=== PATIENT | female | born 1955 | race Caucasian/White ===

== ENCOUNTER → 2022-10-16 13:28 | Outpatient (CLI) | payer MEDICARE, OTHER, SELFPAY | PROVIDERS: PCP Nurse Practitioner Family; Referring Provider Podiatrist; Visit Provider Podiatrist | DX: Z01.818 Encounter for other preprocedural examination (principal) | CPT/HCPCS: 93005; 93010 ==

== ENCOUNTER → 2022-10-18 11:31 | Outpatient (CLI) | payer MEDICARE, OTHER, SELFPAY ==
--- NOTE | 2022-10-18 11:33 | DI.RAD.S_ITS ---
PROCEDURE: XR SHOULDER RT MIN 2V INDICATIONS: RIGHT SHOULDER PAIN TECHNIQUE: 3 views of the shoulder were acquired. COMPARISON: None. FINDINGS: Bones: No fractures or dislocations. Mild right shoulder DJD. No suspicious bony lesions. Visualized ribs appear intact. Soft tissues: No suspicious soft tissue calcifications. IMPRESSION: Mild right shoulder DJD. Consider further evaluation of the rotator cuff with MRI. Dictated by: Remi Izaguirre M.D. on 10/18/2022 at 13:17 Approved by: Remi Izaguirre M.D. on 10/18/2022 at 13:19
--- NOTE | 2022-10-18 11:33 | DI.RAD.S_ITS ---
PROCEDURE: XR CERVICAL SPINE 4V OR 5V INDICATIONS: NECK PAIN TECHNIQUE: 5 views of the cervical spine acquired. COMPARISON: None. FINDINGS: Bones: No fractures or dislocations to the C7 level. Oblique images demonstrate bony foraminal narrowing at C5-C6 and C6-C7 bilaterally. Mild degenerative change in the cervical spine most pronounced at C5-C6 and C6-C7. Soft tissues: No prevertebral soft tissue swelling. IMPRESSION: Bony neural foraminal narrowing at C5-C6 and C6-C7 bilaterally. Overall mild degenerative change in the cervical spine. Dictated by: Remi Izaguirre M.D. on 10/18/2022 at 13:16 Approved by: Remi Izaguirre M.D. on 10/18/2022 at 13:17
== END ==
PROVIDERS: PCP Nurse Practitioner Family; Referring Provider Anesthesiology; Visit Provider Anesthesiology
DX: M47.812 Spondylosis without myelopathy or radiculopathy, cervical region (principal); M48.02 Spinal stenosis, cervical region; M19.011 Primary osteoarthritis, right shoulder; M54.2 Cervicalgia; M25.511 Pain in right shoulder; G89.29 Other chronic pain; Z68.32 Body mass index [BMI] 32.0-32.9, adult
CPT/HCPCS: 20611; 72050; 73030; 99214; J1030